=== PATIENT | female | born 1995 | race African-American/Black ===

== ENCOUNTER → 2017-11-25 | Emergency (ER) | payer OTHER ==
[~2017-11-25] MED LIST: HYDROCODON-ACE1 EAC7 PO; KEFLEX500 MG PO; NAPROSYN500 MG PO; NORCO 5/3251 TABLET PO; PREDNISONE50 MG PO; ULTRAM50 MG PO; VENTOLIN HFA18 GM IH; ZITHROMAX Z-PA250 MG PO
== END | disposition home or self-care (01) ==
LOC: TRA 04:10
DX: I46.9 Cardiac arrest, cause unspecified (principal); V49.50XA Passenger injured in collision with unspecified motor vehicles in traffic accident, initial encounter; Y92.410 Unspecified street and highway as the place of occurrence of the external cause
CPT/HCPCS: 86850; 86900; 86901; 86920; C1894; P9016